=== PATIENT | female | born 1955 | race Caucasian/White ===

== ENCOUNTER → 2017-11-17 | Day surgery (SDC) | payer MEDICARE ==
[~2017-11-17] MED LIST: ACETAMINOPHEN650 MG RC; ADVAIR 250-501 EACH IH; ALLEGRA ALLERG180 MG; ARMOUR THYROID60 MG PO; ASTEPRO205.5 MCG/ IH; AUGMENTIN 875-1 EACH PO; BIOTIN2500 MCG; BUPIVACAINE HCL 0.5% INJ 30 ML VIAL INJ ONE; CEFAZOLIN SOD 1 GM VIAL ONE; DEXAMETHASONE SOD PHOS INJ 4 MG/ML VIAL ONE; DILANTIN100 MG PO; DIOVAN80 MG PO; FENTANYL CITRATE/PF 100MCG/2 ML INJ ONE; LEVOTHYROXINE50 MCG PO; LIDOCAINE HCL 2% LOCAL INJ 5 ML SDV VIAL INJ ONE; LINZESS PO; MELATONIN3 MG PO; MIDAZOLAM HCL 2 MG/2 ML VIAL ONE; MONTELUKAST SOD10 MG PO; MUCINEX DM ER1 EACH PO; NEXIUM40 MG PO; ONDANSETRON HCL INJ 2 MG/ML VIAL ONE; PROBIOTIC & AC1 EACH PO; PROPOFOL IV EMULSION 10 MG/ML 20 ML VIAL ONE; SEVOFLURANE INHAL SOLN 250 ML PEN BTL ONE; SUDAFED 12 HOU120 MG PO; SUMATRIPTAN SUC25 MG PO; VITAMIN B12-FO1 EACH; VITAMIN D250000 UNIT PO; ZYRTEC10 M3; [UNRECOGNIZED DRUG - OTHER]
[2017-11-17 13:25] VITALS: BP 123/73
--- NOTE | 2017-11-17 15:48 | Operative Report ---
DATE OF PROCEDURE: November 17, 2017 FIRST HELPER: None. PREOPERATIVE DIAGNOSIS: Right 3rd trigger finger. POSTOPERATIVE DIAGNOSIS: Right 3rd trigger finger. PROCEDURE: Release of right 3rd trigger finger. INDICATIONS: The patient is a 62-year-old woman who has clinic signs and symptoms consistent with stenosing tenosynovitis of her right 3rd finger. She has failed conservative management and would like to proceed with definitive intervention. The risks and benefits of a surgical release have been explained. She states she understands and wishes to proceed. DESCRIPTION OF PROCEDURE: The patient was brought to the operating room and placed under general anesthetic. Her right upper extremity was prepped and draped in a sterile manner. A preoperative time out was performed. A proximal tourniquet was inflated briefly to 250 mmHg. An incision was made in line with the 3rd finger over the distal conway crease. The A1 tammy was carefully exposed. A #15 blade surgical knife was used to initiate the release. This was completed with a pair of tenotomy scissors. The tendon was retracted from the wound and noted to have no further stenosing tenosynovitis. The wound was closed with 2 interrupted nylon stitches and 2 mL of 2% lidocaine without epinephrine were injected around the incision. A sterile bandage was applied. She was extubated and transported to the recovery room in stable condition. Job#: [id number]
== END | disposition home or self-care (01) ==
LOC: OR 09:15
PROVIDERS: ATTEND Specialist
DX: M65.331 Trigger finger, right middle finger (principal); M19.90 Unspecified osteoarthritis, unspecified site; G40.909 Epilepsy, unspecified, not intractable, without status epilepticus; I10 Essential (primary) hypertension; E03.9 Hypothyroidism, unspecified; R00.1 Bradycardia, unspecified; K58.9 Irritable bowel syndrome, unspecified; K21.9 Gastro-esophageal reflux disease without esophagitis; F41.9 Anxiety disorder, unspecified; Z01.810 Encounter for preprocedural cardiovascular examination; Z68.31 Body mass index [BMI] 31.0-31.9, adult; Z87.820 Personal history of traumatic brain injury; Z82.61 Family history of arthritis
CPT/HCPCS: 26055; 93005; J0690; J1100; J2001; J2250; J2405

== ENCOUNTER → 2020-07-09 | Outpatient (CLI) | payer MEDICARE, OTHER ==
[~2020-07-09] MED LIST changes: -BUPIVACAINE HCL 0.5% INJ 30 ML VIAL INJ ONE; -CEFAZOLIN SOD 1 GM VIAL ONE; -DEXAMETHASONE SOD PHOS INJ 4 MG/ML VIAL ONE; -FENTANYL CITRATE/PF 100MCG/2 ML INJ ONE; +IOPAMIDOL 300 MG/ML 15ML VIAL IT ONE; +LIDOCAINE HCL 1% LOCAL INJ 20 ML VIAL ONE; -LIDOCAINE HCL 2% LOCAL INJ 5 ML SDV VIAL INJ ONE; -MIDAZOLAM HCL 2 MG/2 ML VIAL ONE; -ONDANSETRON HCL INJ 2 MG/ML VIAL ONE; -PROPOFOL IV EMULSION 10 MG/ML 20 ML VIAL ONE; -SEVOFLURANE INHAL SOLN 250 ML PEN BTL ONE
[2020-07-09 08:44] LABS: INR 0.88; PROTHROMBIN TIME 12.5 seconds (11.9-14.5)
== END ==
LOC: DX 07:45
PROVIDERS: ATTEND Family Medicine
DX: M47.816 Spondylosis without myelopathy or radiculopathy, lumbar region (principal); M54.41 Lumbago with sciatica, right side
CPT/HCPCS: 36415; 62304; 72132; 85014; 85049; 85610; 85730; J2001; Q9967

== ENCOUNTER → 2024-10-15 | Day surgery (SDC) | payer MEDICARE, OTHER ==
[2024-10-10 10:13] LABS: BASOPHILS % 0.6 % (0.0-1.0); EOSINOPHILS % 1.6 % (0.0-6.0); LYMPHOCYTES % 22.3 % (18.0-39.1); MONOCYTES % 8.8 % (4.4-11.3); NEUTROPHILS % 66.4 % (38.7-80.0); RED CELL DISTRIBUTION WIDTH 13.1 % (11.7-14.4)
[~2024-10-15] MED LIST changes: +AZITHROMYCIN250 MG PO; +CALCIUM PO; +CELEBREX100 MG PO; +CRANBERRY450 M2 PO; +FENTANYL CITRATE/PF 100MCG/2 ML INJ ONE; +GLUCAGON FOR INJ 1 MG VIAL ONE; +HYOSCYAMINE SULFATE 0.5 MG/ML INJ ONE; -IOPAMIDOL 300 MG/ML 15ML VIAL IT ONE; +LACTATED RINGER'S 1,000 ML ONE; -LIDOCAINE HCL 1% LOCAL INJ 20 ML VIAL ONE; +LIDOCAINE HCL 2% LOCAL INJ 5 ML SDV VIAL INJ ONE; +LUNESTA3 MG PO; +LYRICA25 MG PO; +METHOCARBAMOL750 MG PO; +ONDANSETRON HCL INJ 2MG/ML 2ML 2 MG/ML VIAL ONE; +OZEMPIC2 MG/0.75 SC; +PREDNISONE20 MG PO; +PROPOFOL IV EMULSION 10 MG/ML 20 ML VIAL ONE; +PROPOFOL IV EMULSION 50 ML IV ONE; +TESTOSTERO100 MG/1 M INJ; +VENTOLIN HFA18 GM INH
[2024-10-15 10:25] VITALS: BP 139/68; PULSE 86; RESP 16; TEMP 97.7; O2SAT 96
== END | disposition home or self-care (01) ==
LOC: OR 07:10
PROVIDERS: ATTEND Internal Medicine Gastroenterology
DX: K22.70 Barrett's esophagus without dysplasia (principal); D12.2 Benign neoplasm of ascending colon; K31.7 Polyp of stomach and duodenum; K29.50 Unspecified chronic gastritis without bleeding; K21.9 Gastro-esophageal reflux disease without esophagitis; K44.9 Diaphragmatic hernia without obstruction or gangrene; K57.30 Diverticulosis of large intestine without perforation or abscess without bleeding; K64.8 Other hemorrhoids; E11.9 Type 2 diabetes mellitus without complications; I10 Essential (primary) hypertension; Z71.89 Other specified counseling; E03.9 Hypothyroidism, unspecified; E66.9 Obesity, unspecified; M06.9 Rheumatoid arthritis, unspecified; R56.9 Unspecified convulsions; Z01.810 Encounter for preprocedural cardiovascular examination; Z01.812 Encounter for preprocedural laboratory examination; Z79.85 Long-term (current) use of injectable non-insulin antidiabetic drugs; Z79.899 Other long term (current) drug therapy; Z68.33 Body mass index [BMI] 33.0-33.9, adult; Z71.3 Dietary counseling and surveillance
CPT/HCPCS: 36415 ×2; 43239; 43251; 45385; 82948; 85025; 88305; 93005; J1610; J1980; J2003; J2405; J2470; J2704 ×2; J3010; J7121